=== PATIENT | female | born 2000 | race Hispanic/Latino ===

== ENCOUNTER 2024-12-24 11:32 | Emergency (ER) | payer SELFPAY ==
[~2024-12-24] VITALS: Ht 152.4 cm; Wt 94.8 kg
--- NOTE | 2024-12-24 11:48 | ERN ---
ED Note History of Present Illness Stated Complaint: NAUSEA\VOMITTING Chief Complaint: Nausea,Vomiting,Diarrhea Time Seen by MD: 11:38 Dictation: PATIENT IS A 24-YEAR-OLD FEMALE COMING IN TODAY WITH COMPLAINTS OF HAVING NAUSEA VOMITING ONSET LAST NIGHT WITH A EPIGASTRIC PAIN. SHE STATES WHEN SHE THREW UP SHE SAW SOME BLOOD IN THE EMESIS. SHE HAS HAD NONE OF THAT SINCE SHE STOPPED VOMITING YESTERDAY DENIES ANY HISTORY OF ESOPHAGEAL REFLUX/GERD/CIRRHOSIS/VARICES. SHE HAS NO PAIN AT THIS TIME. WAS JUST CONCERNED. PRIMARY CARE DOCTOR DENIES Allergies: Coded Allergies: No Known Drug Allergies (Unverified Allergy, Unknown, 12/24/24) Past Medical History History: Not Applicable RN Note Reviewed/Agreed w/PFSH: Yes Review of System Dictation CONSTITUTIONAL: NEGATIVE EXCEPT FOR HPI HEAD/FACE: NEGATIVE EXCEPT FOR HPI EENT: NEGATIVE EXCEPT FOR HPI RESPIRATORY: NEGATIVE EXCEPT FOR HPI GASTROINTESTINAL/ABDOMINAL: NEGATIVE EXCEPT FOR HPI EPIGASTRIC PAIN WITH NAUSEA VOMITING, BLOOD-TINGED EMESIS GENITOURINARY: NEGATIVE EXCEPT FOR HPI MUSCULOSKELETAL: NEGATIVE EXCEPT FOR HPI INTEGUMENTARY: NEGATIVE EXCEPT FOR HPI NEUROLOGICAL/PSYCH: NEGATIVE EXCEPT FOR HPI HEMATOLOGIC/LYMPHATIC: NEGATIVE EXCEPT FOR HPI ALL SYSTEMS NEGATIVE, EXCEPT NOTED ABOVE. 13 POINT REVIEW OF SYSTEMS ASSESSED AND ALL NEGATIVE EXCEPT FOR ABOVE. Initial Vital Sign VS Vital Signs Date Time Temp Pulse Resp B/P (MAP) Pulse Ox O2 Delivery O2 Flow Rate FiO2 12/24/24 11:44 98.4 61 16 115/79 98 Room Air* 0 21 Physical Exam Dictation VITAL SIGNS REVIEWED GENERAL APPEARANCE: ALERT, ORIENTED X 3, NO ACUTE DISTRESS, WELL DEVELOPED, NOURISHED. HEAD AND FACE: NON-TRAUMATIC. EYES: PERRL, PINK CONJUNCTIVAS, EYELID NO TRAUMA, ANTERIOR CHAMBER WITH ARCUS SENILIS. EARS: PINNAS INTACT AND NO SIGNS OF TRAUMA OR ERYTHEMA EAR CANALS CLEAR AND NO DISCHARGE TM NO ERYTHEMA NOSE: NO DISCHARGE, NO BLEEDING. OROPHARYNX: MOUTH NORMAL, TONGUE PINK, PHARYNX CLEAR,NO ERYTHEMA, TONSILS NO EXUDATES, NO ABSCESSES NOTED, MUCOUS MEMBRANE MOIST NECK: SUPPLE, NON-TENDER, NO THYROMEGALY, NO MASSES, NO JVD, NO BRUITS BREAST:DEFERRED CHEST:NO TENDERNESS, NO CREPITUS, NO PARADOXICAL MOVEMENT, NO RETRACTIONS LUNGS:CLEAR, WELL-VENTILATED, SYMMETRIC, NO RALES, NO WHEEZING, NO RHONCHI, NO STRIDOR, GOOD BREATH SOUNDS BILATERALLY HEART: REGULAR RATE, REGULAR RHYTHM, NO MURMUR, NO GALLOPS VASCULAR: NO PERIPHERAL EDEMA, ABDOMEN: SOFT, POSITIVE BOWEL SOUNDS, NONDISTENDED, NO GUARDING, NONTENDER, NO REBOUND, NO MASSES NO HEPATOMEGALY, NO SPLENOMEGALY, NO DAO'S SIGN, NO HERNIAS. RECTAL: DEFERRED GENITAL: DEFERRED NEUROLOGICAL: NORMAL SPEECH, MOTOR FUNCTION INTACT, SENSORY FUNCTION INTACT MUSCULOSKELETAL: NECK NONTENDER, FULL RANGE OF MOTION, BACK NONTENDER, FULL RANGE OF MOTION, EXTREMITIES: NONTENDER, FULL RANGE OF MOTION SKIN: COLOR PINK, DRY, NO TURGOR, NO RASH, NO LACERATIONS, NO ABRASIONS, NO CONTUSIONS. LYMPHATIC: DEFERRED Results (Laboratory/Radiology) Laboratory/Radiology Laboratory Tests Test 12/24/24 11:51 12/24/24 12:07 Urine Color LIGHT-YELLOW (YELLOW) Urine Appearance CLEAR (CLEAR) Urine pH 7.5 (5.0-8.0) Urine Specific [place] 1.008 (1.001-1.031) Urine Protein NEGATIVE mg/dL (NEGATIVE) Urine Glucose (UA) NEGATIVE mg/dL (NEGATIVE) Urine Ketones NEGATIVE mg/dL (NEGATIVE) Urine Occult Blood NEGATIVE (NEGATIVE) Urine Nitrate NEGATIVE (NEGATIVE) Urine Bilirubin NEGATIVE mg/dL (NEGATIVE) Urine Urobilinogen 0.2 mg/dL (0.2-1.0) Urine Leukocyte Esterase NEGATIVE Bakari/uL Urine HCG, Qualitative NEGATIVE (NEGATIVE) White Blood Count 7.6 K/uL (4.8-10.8) Red Blood Count 4.43 MIL/uL (4.00-5.50) Hemoglobin 14.7 g/dL (12.0-16.0) Hematocrit 43.3 % (36-48) Mean Corpuscular Volume 97.7 fL (79-99) Mean Corpuscular Hemoglobin 33.2 pg (27.0-33.0) H Mean Corpuscular Hemoglobin Concent 33.9 g/dL (32.0-36.0) Red Cell Distribution Width 11.5 % (11.0-15.5) Platelet Count 359 K/uL (130-400) Mean Platelet Volume 9.7 fL (7.5-10.5) Immature Granulocyte % (Auto) 0.5 % (0-1) Neutrophils (%) (Auto) 65.2 % (40.0-77.0) Lymphocytes (%) (Auto) 25.4 % (21.0-51.0) Monocytes (%) (Auto) 5.3 % (3.0-13.0) Eosinophils (%) (Auto) 2.9 % (0.0-8.0) Basophils (%) (Auto) 0.7 % (0.0-5.0) Neutrophils # (Auto) 5.0 K/uL (1.8-7.7) Lymphocytes # (Auto) 1.9 K/uL (1.0-4.8) Monocytes # (Auto) 0.4 K/uL (0.1-1.0) Eosinophils # (Auto) 0.22 K/uL (0.00-0.70) Basophils # (Auto) 0.05 K/uL (0.00-0.20) Absolute Immature Granulocyte (auto 0.04 K/uL (0-1) Nucleated Red Blood Cells 0.0 % (0.0-0.19) Sodium Level 140 mmol/L (136-145) Potassium Level 4.1 mmol/L (3.5-5.1) Chloride Level 102 mmol/L (101-111) Carbon Dioxide Level 28 mmol/L (21-32) Blood Urea Nitrogen 7 mg/dL (7-18) Creatinine 0.7 mg/dL (0.5-1.0) Glomerular Filtration Rate Calc 124 mL/min (>90) Random Glucose 94 mg/dL (70-105) Total Calcium 9.1 mg/dL (8.5-10.1) Lipase 31 U/L (16-77) Labs Reviewed?: Yes ED Course ED Course Orders Procedure Category Date Status Time Cbc With Differential LAB 12/24/24 Complete 11:46 ,Urine Test LAB 12/24/24 Complete 11:46 Urinalysis Profile LAB 12/24/24 Complete 11:46 0.9%Nacl 1000ml (Ns PHA 12/24/24 Complete 1000ml) 12:00 Famotidine 20mg Vial PHA 12/24/24 Complete (Pepcid 20mg Vial) 12:00 Lipase LAB 12/24/24 Complete 11:46 Basic Metabolic Panel LAB 12/24/24 Complete 11:46 Current Medications Medications (Trade) Dose Ordered Sig/Renee Route PRN Reason Start Time Stop Time Status Last Admin Dose Admin Famotidine (Pepcid 20mg Vial) 20 mg ONCE ONCE IV 12/24/24 12:00 12/24/24 12:01 DC 12/24/24 12:26 Sodium Chloride 1,000 ml @ 0 mls/hr ONCE ONCE IV 12/24/24 12:00 12/24/24 12:01 DC 12/24/24 12:26 Vital Signs Date Time Temp Pulse Resp B/P (MAP) Pulse Ox O2 Delivery O2 Flow Rate FiO2 12/24/24 11:44 98.4 61 16 115/79 98 Room Air* 0 21 1245/LABS ARE UNREMARKABLE. NO INFECTION NO ANEMIA NO ELECTROLYTE IMBALANCE NOT WE WILL DISCHARGE PATIENT HOME TO FOLLOW UP WITH HER PRIMARY CARE DOCTOR Medical Decision Making MDM MEDICAL DISCHARGE MAKING BASED ON BASIC LABS FOR ABDOMINAL PAIN NAUSEA VOMITING. ALL LABS ARE COMPLETELY NORMAL PATIENT DISCHARGED HOME TO FOLLOW UP WITH HER PRIMARY CARE DOCTOR DX & DISP Disposition: Discharge Departure Impression: Primary Impression: Viral gastroenteritis Condition: Stable Scripts Omeprazole (Omeprazole) 40 Mg Capsule.dr 1 CAP PO DAILY for 30 Days, #30 CAP 0 Refills Prov: CHRISTOPHER FOY COOK CHILL TECHNICIAN 12/24/24 Referrals: OSCAR RAGSDALE MD (PCP) Time of Disposition: 12:45 I have reviewed the case, and I agree with, Diagnosis and Plan CHRISTOPHER FOY NP Dec 24, 2024 11:48
[2024-12-24 12:10] LABS: APPEARANCE,URINE CLEAR (CLEAR); BILIRUBIN,URINE NEGATIVE (NEGATIVE); GLUCOSE, URINE (UA) NEGATIVE (NEGATIVE); KETONES,URINE NEGATIVE (NEGATIVE); LEUKOCYTE ESTERASE ,URINE NEGATIVE Leu/uL (NEGATIVE); NITRATE,URINE NEGATIVE (NEGATIVE); OCCULT BLOOD,URINE NEGATIVE (NEGATIVE); PH,URINE 7.5 (5.0-8.0); PROTEIN,URINE NEGATIVE (NEGATIVE); UROBILINOGEN,URINE 0.2 mg/dL (0.2-1.0)
[2024-12-24 12:13] LABS: HCG,QUALITATIVE URINE NEGATIVE (NEGATIVE)
[2024-12-24 12:14] LABS: ADD UA MICROSCOPIC NO; COLOR,URINE LIGHT-YELLOW (YELLOW)
[2024-12-24 12:23] LABS: BASOPHILS # (AUTO) 0.05 K/uL (0.00-0.20); BASOPHILS % (AUTO) 0.7 % (0.0-5.0); EOSINOPHILS # (AUTO) 0.22 K/uL (0.00-0.70); EOSINOPHILS % (AUTO) 2.9 % (0.0-8.0); HEMATOCRIT 43.3 % (36-48); IMMATURE GRANULOCYTE ABSOLUTE 0.04 K/uL (0-1); LYMPHOCYTES # (AUTO) 1.9 K/uL (1.0-4.8); LYMPHOCYTES % (AUTO) 25.4 % (21.0-51.0); MEAN CORPUSCULAR HEMOGLOBIN 33.2 pg (27.0-33.0); MEAN CORPUSCULAR HGB CONC 33.9 g/dL (32.0-36.0); MEAN CORPUSCULAR VOLUME 97.7 fL (79-99); MONOCYTES # (AUTO) 0.4 K/uL (0.1-1.0); MONOCYTES % (AUTO) 5.3 % (3.0-13.0); NEUTROPHILS % (AUTO) 65.2 % (40.0-77.0); PLATELET COUNT (AUTO) 359 K/uL (130-400); RED BLOOD CELL COUNT(AUTO) 4.43 MIL/uL (4.00-5.50); RED CELL DISTRIBUTION WIDTH 11.5 % (11.0-15.5); WHITE BLOOD COUNT (AUTO) 7.6 K/uL (4.8-10.8)
[2024-12-24] MEDS: FAMOTIDINE 20MG VIAL IV ONE (12:26)
[2024-12-24] MEDS: 0.9%NACL 1000ML 1,000 ML IV ONE (12:26)
[2024-12-24 12:39] LABS: CREATININE 0.7 mg/dL (0.5-1.0); POTASSIUM 4.1 mmol/L (3.5-5.1)
[2024-12-24] MEDS ORDERED: OMEP40CA21 PO (12:45)
[2024-12-24 13:31] VITALS: BP 121/76; PULSE 62; RESP 16; TEMP 98.4; O2SAT 98
== END 2024-12-24 13:34 | disposition home or self-care (01) ==
LOC: EDH 11:32
DX: A08.4 Viral intestinal infection, unspecified (principal)
CPT/HCPCS: 99283; 96374; 96361; 80048; 83690; 85025; 81003; 81025; 36415; J3490; J7030